=== PATIENT | female | born 1965 | race Caucasian/White ===

== ENCOUNTER 2020-07-09 19:47 | Observation (INO) | payer OTHER ==
[~2020-07-09] VITALS: Ht 160 cm; Wt 81.6 kg
[~2020-07-09 19:47] MED LIST: KEPPRA500 MG PO
[2020-07-09 20:47] LABS: BUN/CREATININE RATIO 23 (0-10)
[2020-07-09 22:04] LABS: HEMOGLOBIN 14.6 gm/dl (12.3-15.3); RED BLOOD COUNT 4.58 M/UL (4.00-5.10)
[2020-07-10 06:13] LABS: HEMOGLOBIN 13.6 gm/dl (12.3-15.3); RED BLOOD COUNT 4.31 M/UL (4.00-5.10)
[2020-07-10 06:44] LABS: BUN/CREATININE RATIO 15 (0-10)
--- NOTE | 2020-07-10 15:17 | NUR ---
1435 Patient returned to Room 4105 per Surgery Staff. Patient sleepy, but arouses easily to verbal stimuli. V/S stable. Respirations even/ unlabored. Denies pain/discomfort at this time. Abdominal incisions closed with dermabond. SUKH Drain noted with 80ml of pink drainage, emptied at this time. Call light in reach.
[2020-07-11] MEDS ORDERED: COLACE100 MG PO (10:29)
[2020-07-11] MEDS ORDERED: PERCOCET 5-3251 EACH PO (10:29)
[2020-07-11] MEDS ORDERED: AUGMENTIN 875-1 EACH PO (12:02)
--- NOTE | 2020-07-11 15:32 | NUR ---
1450 WENT TO DISCHARGE THE PATIENT PATIENT NOT IN ROOM . LOOKED DOWNSTAIRS PATIENT NOT IN THE HOSPITAL CALLED THE NUMBER IN THE CHART SPOKE WITH DAUGHTER ISSAC SHE HAD LEFT AND WENT HOME . GIVEN INSTRUCTIONS TO DAUGHTER ABOUT SUKH DRAIN AND MEASURING CONTENTS ALSO HOW TO OPEN AND CLOSE . MEDS E-SCRIBED TO PHARMACY . PATIENT IS TO CALL ME WHEN SHE GETS HOME .NO DISCHARGE GIVEN ALSO THAT THE DOCTOR/SURGEON TO BE SEEN IN 1 WEEK TIME
== END 2020-07-11 16:00 | disposition home or self-care (01) ==
LOC: ER1 19:47 → MED SURG 4 22:09 → CDU 22:09 → MED SURG 4 22:09
PROVIDERS: Emergency Medicine; ADMIT Surgery
DX: K35.32 Acute appendicitis with perforation, localized peritonitis, and gangrene, without abscess (principal); I10 Essential (primary) hypertension; E11.9 Type 2 diabetes mellitus without complications; I51.9 Heart disease, unspecified; F17.210 Nicotine dependence, cigarettes, uncomplicated; Z85.118 Personal history of other malignant neoplasm of bronchus and lung; Z90.49 Acquired absence of other specified parts of digestive tract; Z20.822 Contact with and (suspected) exposure to COVID-19
CPT/HCPCS: 36415; 80048; 80053; 81001; 83690; 85025; 96365; 96374; 96375; 96376; 99285; G0378; J1100; J1170; J1885; J2001; J2250; J2270; J2405; J2543; J2704; J2710; J3010; J7030; J7120; Q9967; U0002